=== PATIENT | male | born 1995 | race Two or more races ===

== ENCOUNTER 2024-09-20 16:59 | Emergency (ER) | payer OTHER ==
[~2024-09-20] VITALS: Ht 175.3 cm; Wt 91.7 kg
[2024-09-20 18:37] VITALS: BP 147/83; PULSE 98; RESP 18; TEMP 98.2; O2SAT 97
[2024-09-20] MEDS: HYDROcodone-ACET 5/325MG TAB PO ONE (18:43)
--- NOTE | 2024-09-20 18:57 | ED.PDOC ---
History of Present Illness(SKN HPI Comments This is a 28-year-old male presents to the ED status post dog bite. Patient states around 1 hour ago prior to main triage arrival he was at work on 2 when his clients house knocked on the door and 1 of the dogs bit his hand. Patient is complaining of laceration to right hand palm aspect. Describes pain as burning pressure type pain 7/10 on pain scale. He is complainig puncture wound to right hand. Reports tetanus was under 3 years ago. He denies any other known injury. Denies numbness or weakness of the extremity. Chief Complaint: Bite Time Seen by MD: 18:03 History of Present Illness: Nurses Notes, Medications, Allergies Information Source: Patient Mode of Arrival: Ambulatory Past Medical History PAST MEDICAL HISTORY: Denies Surgical History: Denies all surgeries Family History Family History: Reviewed,noncontributory to illness Social History Smoker: Non-Smoker Alcohol: Occasionally Drugs: Denies Drug Use Constitutional: denies: chills, diaphoresis, fatigue, fever, malaise, sweats, weakness, others EENTM: denies: blurred vision, double vision, ear bleeding, ear discharge, ear drainage, ear pain, ear ringing, eye pain, eye redness, hearing loss, mouth pain, mouth swelling, nasal discharge, nose bleeding, nose congestion, nose pain, photophobia, tearing, throat pain, throat swelling, voice changes, others Respiratory: denies: cough, hemoptysis, orthopnea, SOB at rest, shortness of breath, SOB with excertion, stridor, wheezing, others Cardiovascular: denies: chest pain, dizzy spells, diaphoresis, Dyspnea on exertion, edema, irregular heart beat, left arm pain, lightheadedness, palpitations, PND, syncope, others Gastrointestinal: denies: abdomen distended, abdominal pain, blood streaked bowels, constipated, diarrhea, dysphagia, difficulty swallowing, hematemesis, melena, nausea, poor appetite, poor fluid intake, rectal bleeding, rectal pain, vomiting, others Genitourinary: denies: burning, dysuria, flank pain, frequency, hematuria, incontinence, penile discharge, penile sore, pain, testicle pain, testicle swel ling, urgency, others Neurological: denies: dizziness, fainting, headache, left sided numbness, left sided weakness, numbness, paresthesia, pre-existing deficit, right sided numbness, right sided weakness, seizure, speech problems, tingling, tremors, weakness, others Musculoskeletal: denies: back pain, gout, joint pain, joint swelling, muscle pain, muscle stiffness, neck pain, others Integumetry: reports: laceration (Right hand palm aspect); denies: bruises, change in color, change in hair/nails, dryness, lesions, lumps, rash, wounds, others Allergic/Immunocompromised: denies: Difficulty Healing, Frequent Infections, Hives, Itching, others Hematologic/Lymphatic: denies: anemia, blood clots, easy bleeding, easy bruising, swollen glands, others Endocrine: denies: excessive hunger, excessive sweating, excessive thirst, excessive urination, flushing, intolerance to cold, intolerance to heat, unexplained weight gain, unexplained weight loss, others Psychiatric: denies: anxiety, bipolar disorder, depression, hopeless, panic disorder, schizophrenia, sleepless, suicidal, others Physical Exam General Appearance: No Apparent Distress, Normal HEENT: Pharynx Normal Neck: Full Range of Motion, Non-Tender Respiratory: Lungs Clear, No Respiratory Distress, Normal Breath Sounds Cardiovascular: No Murmur, Normal Peripheral Pulses, Regular Rate/Rhythm Breast Exam: Deferred Gastrointestinal: Non Tender, Soft Genitalia: Deferred Pelvic: Deferred Rectal: Deferred Extremities: Normal capillary refill, Normal inspection, Normal range of motion, Non-tender, No pedal edema Musculoskeletal : Apperance: Normal Neurologic: Alert, lead sales consultant II-XII nml as Tested, No Motor Deficits, Normal Affect, Normal Mood, No Sensory Deficits Cerebellar Function: Normal Reflexes: Normal Skin: Dry, Lacerations (Approximate 1 cm avulsion to right hand medial palm aspect bleeding controlled at this time.), Normal Color, Warm Lymphatic: No Adenopathy Was a procedure done? Was a procedure done?: No Laceration Repair : Location Right hand medial palmar aspect Length 1 cm Anesthetic: Lidocaine, Without epi Laceration Repair Prep: Saline, Betadine Laceration Repair Wound Comple: epidermis/dermis repair Laceration Repair: Number of sutures (3) Informed consent obtained: Yes Risks, benefits, and alternati: Yes Notes Patient tolerated well minimal blood loss good approximation left a little loose for coverage drainage due to being a dog bite we will start patient on antibiotic prophylactically Differential Diagnosis (INTG) Differential Diagnosis: Fracture, Laceration X-Ray, Labs, Meds, VS Vital Signs Date Time Temp Pulse Resp B/P (MAP) Pulse Ox O2 Delivery O2 Flow Rate FiO2 09/20/24 18:37 98.2 98 18 147/83 (104) 97 98.2 09/20/24 18:37 98 18 97 09/20/24 18:17 98.2 98 18 147/83 (104) 97 X-Ray, Labs, Meds, VS Comment X-ray of right hand Wound cleansed and dressed Required 3 sutures for closure with good approximation. We will start patient on Augmentin twice daily x7 days. Advised to follow up for wound re-evaluation in 2-3 days at urgent Care ER or primary care doctor. Discussed suture aftercare sutures removed in 7-10 days. ER return precautions given for bleeding and infection. Patient agrees with discharge plan of care. Time of 1ST Reevaluation: 19:37 Reevaluation 1ST: Improved Patient Education/Counseling: Diagnosis, Treatment, Prognosis, Need For Follow Up Family Education/Counseling: No Family Present Departure 1 Departure Time of Disposition: 19:37 Impression: Primary Impression: Dog bite of right hand Qualified Codes: S61.451A - Open bite of right hand, initial encounter; W54.0XXA - Bitten by dog, initial encounter Disposition: HOME / SELF CARE / HOMELESS Condition: Stable e-Prescriptions Amoxicillin & Pot Clavulanate (AUGMENTIN TABLET) 875 Mg Tb 1 TAB PO BID for 7 Days, #14 TAB Prov: CHECO MEJIA 09/20/24 Discharged With: Self Critical Care Note Critical Care Time?: No Stability Stability form required: CHECO Murrell Sep 20, 2024 18:56
[2024-09-20] MEDS: LIDOCAINE 1% HCL (LOCAL ANESTH.) INJ 20ML MDV ID ONE (19:06)
[2024-09-20] MEDS ORDERED: AUG875T PO (19:42)
--- NOTE | 2024-09-20 19:45 | DVH ---
XY R HAND 3 VIEW XRAY, INDICATION: dog bit r/o fb/fx TECHNICAL DATA: Frontal, oblique and lateral views were obtained of the right hand. COMPARISON: None Findings/ IMPRESSION: Limited evaluation due to patient positioning. No obvious gross fracture or dislocation. No destructi ve osseous lesions. No radiopaque foreign objects. No significant degenerative changes.
== END 2024-09-20 19:47 | disposition home or self-care (01) ==
LOC: ER 16:59
DX: S61.411A Laceration without foreign body of right hand, initial encounter (principal); W54.0XXA Bitten by dog, initial encounter; Y93.89 Activity, other specified; Y92.89 Other specified places as the place of occurrence of the external cause; Y99.0 Civilian activity done for income or pay
CPT/HCPCS: 12001; 73130; 99283; J2003